=== PATIENT | female | born 1980 | race Caucasian/White ===

== ENCOUNTER 2016-10-06 23:03 | Observation (INO) | payer BC, OTHER ==
[2016-10-07] MEDS ORDERED: Iohexol 240 (50 ml) PO ONE (00:02)
[2016-10-07] MEDS ORDERED: Sodium Chloride 0.9% 1,000 ML IV STA (00:05)
--- NOTE | 2016-10-07 00:39 | ED PDOC ---
HPI: General Adult Time Seen by Provider: 10/06/16 23:16 Chief Complaint (Nursing): Dizziness/Lightheaded Chief Complaint (Provider): Generalized pain/Abdominal pain/ Weakness History Per: Patient History/Exam Limitations: no limitations Onset/Duration Of Symptoms: Days (1) Current Symptoms Are (Timing): Still Present Severity: Moderate Additional Complaint(s): Adriana Farfan is a 36 y/o female, with a past medical history of Ulcerative Colitis, Hypertension, and Palpitations, presenting to the ER with a worsening sense of abdominal pain, diffuse myalgia, and weakness x1 day. Patient reports being treated with tamiflu recently for influenza exposure. States she has been feeling dry-mouthed at home. Patient additionally reports associated symptoms of mild nausea but denies any episodes of emesis or diarrhea. Past Medical History Reviewed: Historical Data, Nursing Documentation, Vital Signs Vital Signs: Last Vital Signs Temp 97.8 F 10/06/16 23:07 Pulse 92 H 10/06/16 23:07 Resp 30 H 10/06/16 23:07 BP 123/73 10/06/16 23:07 Pulse Ox 100 10/07/16 03:50 - Medical History PMH: HTN Other PMH: palpitations; ulcerative colitis - Surgical History Surgical History: - Family History Family History: States: Unknown Family Hx - Social History Current smoker - smoking cessation education provided: No Alcohol: None Drugs: Denies - Home Medications Home Medications: Ambulatory Orders Medication Instructions Recorded Alprazolam [Xanax] 0.25 mg PO BID PRN #4 tab 04/30/14 Metoprolol Tartrate 25 mg PO BID PRN #6 tab 04/30/14 traMADol [Ultram] 50 mg PO TID PRN #12 tab 10/07/16 - Allergies Allergies/Adverse Reactions: Allergies Allergy/AdvReac Type Severity Reaction Status Date / Time No Known Allergies Allergy Verified 04/29/14 22:10 Review of Systems ROS Statement: Except As Marked, All Systems Reviewed And Found Negative Constitutional: Positive for: Weakness Gastrointestinal: Positive for: Nausea, Abdominal Pain. Negative for: Vomiting , Diarrhea Physical Exam - Reviewed Nursing Documentation Reviewed: Yes Vital Signs Reviewed: Yes - Physical Exam Appears: Positive for: Non-toxic, No Acute Distress Head Exam: Positive for: ATRAUMATIC, NORMOCEPHALIC Skin: Positive for: Normal Color Eye Exam: Positive for: Normal appearance, EOMI, PERRL ENT: Positive for: Normal ENT Inspection. Negative for: Pharyngeal Erythema, Tonsillar Exudate, Tonsillar Swelling Neck: Positive for: Normal, Painless ROM, Supple Cardiovascular/Chest: Positive for: Regular Rate, Rhythm. Negative for: Murmur Respiratory: Positive for: Normal Breath Sounds. Negative for: Respiratory Distress Gastrointestinal/Abdominal: Positive for: Distended (mild). Negative for: Tenderness, Mass, Guarding, Rebound Extremity: Positive for: Normal ROM. Negative for: Deformity Neurologic/Psych: Positive for: Alert, Oriented (x3). Negative for: Motor/ Sensory Deficits - Laboratory Results Result Diagrams: 10/07/16 00:30 10/07/16 00:30 - ECG O2 Sat by Pulse Oximetry: 100 (RA) Pulse Ox Interpretation: Normal Medical Decision Making Medical Decision Makin:16 Initial Impression- 36 y/o female with abdominal pain and myalgia in setting of known ulcerative colitis. Initial Plan- * CT Abd/Pelvis * EKG * CMP * Creatine phosphokinase * Urine preg * Urine dip * CBC w/ differential * Sodium Chloride 1,000 ml IV * Iohexol 50 ml PO * Zofran 4 mg IV * [place] * Influenza AB * Urinalysis * Re-evaluate CT ABD/PELVIS FINDINGS: Lower thorax: No acute findings. ABDOMEN: Liver: Unremarkable. No mass. Gallbladder and bile ducts: Unremarkable. No calcified stones. No ductal dilation. Pancreas: Unremarkable. No mass. No ductal dilation. Spleen: Unremarkable. No splenomegaly. Adrenals: Unremarkable. No mass. Kidneys and ureters: Unremarkable. No solid mass. No hydronephrosis. Stomach and bowel: Moderate to severe fecal retention. Appendix: No findings to suggest acute appendicitis. PELVIS: Bladder: Unremarkable. No mass. Reproductive: Unremarkable as visualized. ABDOMEN and PELVIS: Intraperitoneal space: Unremarkable. No free air. No significant fluid collection. Bones/joints: No acute fracture. No dislocation. Soft tissues: Small ventral hernia without signs of compromise. Vasculature: Unremarkable. No abdominal aortic aneurysm. Lymph nodes: Unremarkable. No enlarged lymph nodes. IMPRESSION: Moderate to severe fecal retention. 03:47 Pt was re-evaluated. Labs were reviewed with no clinically significant abnormalities. Upon re-eval, patient reports markedly improvement in symptoms. Pt will schedule a follow-up appointment with Dr. Presley at [place] in 1-2 days. Advised to return if condition persists or worse. Condition is stable for discharge. Clinical impression- Myalgia, Weakness, Constipation. Documented by Anil Claudio, acting as a scribe for Nadeem Quintero MD. All medical record entries made by the Scribe were at my direction and personally dictated by me. I have reviewed the chart and agree that the record accurately reflects my personal performance of the history, physical exam, medical decision making, and the department course for this patient. I have also personally directed, reviewed, and agree with the discharge instructions and disposition. ED OBSERVATION Date of observation admission: 10/06/16 Time of observation admission: 23:50 - Observation admission statement Patient is being placed in observation because:: Secondary to extensive ED workup - Goals of Observation Goals of observation are:: Pending CT scan and re-evaluation Disposition - Clinical Impression Clinical Impression: Influenza-like illness, Palpitations, Constipation - Disposition Disposition: Routine/Home Disposition Time: 03:50 Condition: STABLE
[2016-10-07 00:51] LABS: RBC URINE 4 /hpf (0-3); URINE BILIRUBIN NEGATIVE (NEGATIVE); URINE BLOOD SMALL (NEGATIVE); URINE COLOR YELLOW (YELLOW); URINE GLUCOSE (UA) NEG (Normal); URINE KETONE NEGATIVE (NEGATIVE); URINE LEUKOCYTE ESTERASE NEG Leu/uL (Negative); URINE PROTEIN NEGATIVE (NEGATIVE); URINE UROBILINOGEN 0.2-1.0 mg/dL (0.2-1.0); WBC URINE 1 /hpf (0-5)
[2016-10-07 00:53] LABS: ALB/GLOB RATIO 1.3 (1.0-2.1); ALKALINE PHOSPHATASE 41 U/L (38-126); ALT/SGPT 115 U/L (9-52); AST/SGOT 45 U/L (14-36); BASO % 0.9 % (0.0-2.0); BILIRUBIN,TOTAL 0.6 mg/dl (0.2-1.3); BLOOD UREA NITROGEN 15 mg/dl (7-17); CALCIUM 9.4 mg/dL (8.4-10.2); CARBON DIOXIDE 26 mmol/L (22-30); CHLORIDE 103 mmol/L (98-107); EOS # 0.1 K/uL (0.0-0.7); GFR AFRICAN-AMERICAN > 60; GLUCOSE,RANDOM 102 mg/dL (65-105); HEMATOCRIT 38.1 % (34.0-47.0); LYMPH # 1.2 K/uL (1.0-4.3); LYMPH % 29.9 % (20.0-40.0); MEAN CELL VOLUME 93.5 fl (81.0-99.0); MEAN CORPUSCULAR HEMOGLOBIN 31.5 pg (27.0-31.0); MEAN CORPUSCULAR HGB CONC 33.7 g/dL (33.0-37.0); MEAN PLATELET VOLUME 10.9 fl (7.2-11.7); MONO # 0.4 K/uL (0.0-0.8); MONO % 10.7 % (0.0-10.0); NEUT # 2.2 K/uL (1.8-7.0); NEUT % 55.5 % (50.0-75.0); NRBC % 0.1 % (0.0-0.0); POTASSIUM 3.6 MMOL/L (3.6-5.0); RED CELL DISTRIBUTION WIDTH 14.3 % (11.5-14.5); SODIUM 143 mmol/l (132-148); TOTAL PROTEIN 7.1 G/DL (6.3-8.2)
[2016-10-07] MEDS ORDERED: Iohexol 300 100 ML IJ ONE (02:12)
[2016-10-07] MEDS ORDERED: Sodium Chloride 0.9% 50 ML IV ONE (02:13)
[2016-10-07 03:55] VITALS: BP 98/53; PULSE 69; RESP 16; TEMP 98.9; O2SAT 99
--- NOTE | 2016-10-07 10:33 | CT ---
PROCEDURE: CT Abdomen and Pelvis with contrast HISTORY: abd pain COMPARISON: None. TECHNIQUE: Contrast dose: 90 cc of Omnipaque 300 Radiation dose: Total exam DLP = 471.66 mGy-cm. FINDINGS: LOWER THORAX: Unremarkable. LIVER: Unremarkable. No gross lesion or ductal dilatation. GALLBLADDER AND BILE DUCTS: Unremarkable. PANCREAS: Unremarkable. No gross lesion or ductal dilatation. SPLEEN: Unremarkable. ADRENALS: Unremarkable. No mass. KIDNEYS AND URETERS: Unremarkable. No hydronephrosis. No solid mass. VASCULATURE: Unremarkable. No aortic aneurysm. BOWEL: Uwas-rs-mliyqsza constipation is noted more prominent at the right colon. No evidence of small bowel obstruction. APPENDIX: No evidence of appendicitis. PERITONEUM: Unremarkable. No free fluid. No free air. LYMPH NODES: Unremarkable. No enlarged lymph nodes. BLADDER: Unremarkable. REPRODUCTIVE: The uterus and adnexa are prominent in size. BONES: No acute fracture. OTHER FINDINGS: [id number] enlarged left gonadal vein of uncertain etiology. IMPRESSION: Mshr-ut-[id number] constipation. No CT evidence of cholecystitis pancreatitis or appendicitis. [id number]-[id number] enlarged left gonadal vein of uncertain etiology. Mildly enlarged uterus and adnexa. Preliminary report was submitted by [facility].
--- NOTE | 2016-10-07 14:01 | CARD ---
APPROVED REPORT EKG Measurement Heart [id number] KS 100P19 [id number] SAr400 <Conclusion> Sinus rhythm with short KS Otherwise normal ECG
== END 2016-10-07 03:42 | disposition home or self-care (01) ==
LOC: H.ER 23:03 → H.EROBSV 23:50
PROVIDERS: ADMIT Emergency Medicine; ATTEND Emergency Medicine
DX: J11.1 Influenza due to unidentified influenza virus with other respiratory manifestations (principal); K51.90 Ulcerative colitis, unspecified, without complications; I10 Essential (primary) hypertension; K59.00 Constipation, unspecified; R00.2 Palpitations